=== PATIENT | male | born 1990 | race Caucasian/White ===

== ENCOUNTER 2018-04-18 09:06 | Emergency (ER) | payer OTHER ==
--- NOTE | 2018-04-18 09:44 | EDM.PDOC ---
ED HPI GENERAL MEDICAL PROBLEM - General Chief Complaint: General Stated Complaint: DIZZY,DISORIENTED AND SOB SPELLS Time Seen by Provider: 04/18/18 09:24 Source of Information: Reports: Patient, RN Notes Reviewed History Limitations: Reports: No Limitations - History of Present Illness INITIAL COMMENTS - FREE TEXT/NARRATIVE: The patient states that he felt dizzy this morning, even before he got out of bed, and continued to feel dizzy even after he got up. He had shortness of breath while he was dizzy. He had facial tingling, bilateral hand tingling, and the sensation of walking on rubber legs. The symptoms have been coming and going all morning. No recent fever, chills, cough, chest pain, palpitations, nausea, vomiting, constipation, diarrhea, or urinary symptoms. The patient states that he has had similar symptoms in the past, due to a panic disorder, but that he was started on Zoloft, and remained asymptomatic until about a week ago. The patient states that he just got over a cold that he has had for about 2 weeks. 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 He is currently on his way to [place]. Past Medical History Psychiatric History: Reports: Anxiety, Depression, Panic Attack Endocrine/Metabolic History: Reports: Obesity/BMI 30+ - Infectious Disease History Infectious Disease History: Reports: Chicken Pox, Influenza - Past Surgical History HEENT Surgical History: Reports: Oral Surgery (wisdom teeth extraction) Social & Family History - Family History Family Medical History: Noncontributory - Tobacco Use Smoking Status *Q: Current Every Day Smoker Years of Tobacco use: 11 Packs/Tins Daily: 1.5 - Caffeine Use Caffeine Use: Reports: Coffee, Energy Drinks - Alcohol Use Alcohol Use History: Yes Alcohol Use Frequency: Socially (occasionally to excess) - Recreational Drug Use Recreational Drug Use: No - Living Situation & Occupation Living situation: Reports: Single, with Significant Other (Fiance), with Family (3 kids) 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 ED EXAM, GENERAL - Physical Exam Exam: See Below Exam Limited By: No Limitations General Appearance: Alert, WD/WN, No Apparent Distress Eye Exam: Bilateral Eye: EOMI, Normal Inspection Ears: Normal External Exam, Hearing Grossly Normal Nose: Normal Inspection, No Blood Throat/Mouth: Normal Inspection, Normal Lips, Normal Voice, No Airway Compromise Head: Atraumatic, Normocephalic Neck: Normal Inspection, Full Range of Motion Respiratory/Chest: No Respiratory Distress, Lungs Clear, Normal Breath Sounds, No Accessory Muscle Use Cardiovascular: Normal Peripheral Pulses, Regular Rate, Rhythm, No Gallop, No JVD, No Murmur, No Rub Peripheral Pulses: 4+: Radial (L), Radial (R) GI/Abdominal: Normal Bowel Sounds, Soft, Non-Tender, No Organomegaly, No Distention, No Abnormal Bruit, No Mass, Other (Obese) (Male) Exam: Deferred Rectal (Males) Exam: Deferred Back Exam: Normal Inspection, Full Range of Motion, NT Extremities: Normal Inspection, Normal Range of Motion, No Pedal Edema, Normal Capillary Refill Neurological: Alert, Oriented, Normal Cognition, No Motor/Sensory Deficits Psychiatric: Normal Affect Skin Exam: Warm, Dry, Intact, Normal Color, No Rash Course - Vital Signs Last Recorded V/S: Last Vital Signs Temp 36.8 C 04/18/18 09:16 Pulse 65 04/18/18 09:16 Resp 16 04/18/18 09:16 BP 135/74 04/18/18 09:16 Pulse Ox 98 04/18/18 09:16 Orthostatic Blood Pressure [ 136/84 Standing] Orthostatic Blood Pressure [ 140/84 Sitting] Orthostatic Blood Pressure [ 132/83 Supine] - Orders/Labs/Meds Orders: Active Orders 24 hr Category Date Time Status Orthostatic Vital Signs [RC] STAT Care 04/18/18 09:27 Active - Re-Assessments/Exams Free Text/Narrative Re-Assessment/Exam: 04/18/18 09:44 The patient is not orthostatic. 04/18/18 09:48 Clinically, the patient's symptoms are consistent with hyperventilation syndrome. I explained that hyperventilation syndrome is usually due to anxiety or panic disorder, and given that the patient has a history of that, that is most likely what is causing his current symptoms. I explained that in some cases , however, hyperventilation can be due to medical problems, such as a pulmonary embolus, liver failure, , etc. and I offered to perform an evaluation for those medical problems, if the patient desired. The patient stated that his primary care back in [place] ran similar tests in September, and that everything was normal, and that he then subsequently started the patient on Zoloft. I believe that the patient's PCP is correctly treating the patient. I recommended that when the patient returns to [place], that he discuss his current management with his PCP. Perhaps the patient would benefit from an increased dose of Zoloft, or perhaps switching to a different SSRI, or adding an additional anxiolytic. The patient is in agreement. Departure - Departure Time of Disposition: 09:51 Disposition: Home, Self-Care 01 Condition: Good Clinical Impression: Hyperventilation syndrome - Discharge Information *PRESCRIPTION DRUG MONITORING PROGRAM REVIEWED*: Not Applicable *COPY OF PRESCRIPTION DRUG MONITORING REPORT IN PATIENT EMERITA: Not Applicable Referrals: PCP,Not In Area [Primary Care Provider] - Forms: ED Department Discharge Additional Instructions: You were seen in the emergency room for symptoms of dizziness, shortness of breath, facial tingling, hand tingling, and the sensation of walking on rubber legs. Evaluation in the ER included positional blood pressure checks, which were normal. You are not dehydrated. Based on your history and physical examination, your symptoms are most likely due to hyperventilation syndrome, a condition where you exhale more carbon dioxide than your body makes. As explained, most hyperventilation syndrome is due to anxiety, although occasionally can be due to medical problems, such as a blood clot in your lungs , severe infection, liver failure, etc. A workup to evaluate for these conditions was offered, but declined. We recommend that when you return home to [place], [place], that you talk to your doctor about your symptoms. You may benefit from an increase of your Zoloft , or switching to a different antidepressant medicine, or perhaps adding an additional antianxiety medicine. If any other problems, please do not hesitate to return to the ER. - My Orders Last 24 Hours: My Active Orders 04/18/18 09:27 Orthostatic Vital Signs [RC] STAT - Assessment/Plan Last 24 Hours: My Active Orders 04/18/18 09:27 Orthostatic Vital Signs [RC] STAT
== END 2018-04-18 10:10 | disposition home or self-care (01) ==
LOC: JD.ED 09:06
DX: F45.8 Other somatoform disorders (principal); F17.210 Nicotine dependence, cigarettes, uncomplicated
CPT/HCPCS: 99283; 99284